=== PATIENT | female | born 1985 | race Caucasian/White ===

== ENCOUNTER 2023-01-31 08:11 | Emergency (ER) | payer MEDICAID ==
[~2023-01-31] VITALS: Ht 172.7 cm; Wt 127.0 kg
[2023-01-31 08:11] VITALS: BP_SYST 163
[~2023-01-31 08:11] MED LIST: AZIT500T2 PO; BENZ-16 PO; FEXO180T16 PO; PHEN120S PO
--- NOTE | 2023-01-31 08:20 | NUR ---
BROUGHT BACK TO BED #3 AND TRIAGED, REPORT GIVEN TO REMBERTO
--- NOTE | 2023-01-31 08:25 | NUR ---
ER at bedside examining patient.
--- NOTE | 2023-01-31 08:32 | NUR ---
Pt states she might have PNA Pt resting comfortably in bed AOX4 VSS Able to make needs known hypertensive at this time MD notified Will continue to monitor
--- NOTE | 2023-01-31 08:42 | NUR ---
COVID AND FLU SWABBED AND SENT TO LAB
[2023-01-31] MEDS ORDERED: PRED20TA PO (10:20)
[2023-01-31] MEDS ORDERED: ALBU2.5V7 INH (10:20)
[2023-01-31 11:06] VITALS: BP_SYST 140
--- NOTE | 2023-01-31 11:08 | NUR ---
Patient given written and verbal discharge instructions and verbalizes understanding. ER MD discussed with patient the results and treatment provided. Patient in stable condition. ID arm band removed. Rx of given. Patient educated on pain management and to follow up with PMD. Pain Scale 0. Opportunity for questions provided and answered. Medication side effect fact sheet provided.
== END 2023-01-31 11:08 | disposition home or self-care (01) ==
LOC: SED 08:11
DX: J98.01 Acute bronchospasm (principal); R05.9 Cough, unspecified; R09.81 Nasal congestion; Z79.899 Other long term (current) drug therapy; Z20.822 Contact with and (suspected) exposure to COVID-19
CPT/HCPCS: 36415; 71045; 99284

== ENCOUNTER 2023-10-31 12:30 | Emergency (ER) | payer MEDICAID ==
[~2023-10-31] VITALS: Ht 172.7 cm; Wt 136.1 kg
[2023-10-31 12:30] VITALS: BP_SYST 158; PULSE 102; RESP 19; TEMP 98.8; O2SAT 97
[~2023-10-31 12:30] MED LIST changes: +ALBU2.5V7 INH; +PRED20TA PO
[2023-10-31] MEDS ORDERED: IPRATROPIUM/ALBUTEROL SULFATE 3 ML AMPUL.NEB (DUONEB) INH ONE (13:15)
[2023-10-31] MEDS ORDERED: predniSONE 20 MG TABLET PO ONE (13:15)
[2023-10-31 13:43] LABS: BASOPHILS # (AUTO) 0.1 K/uL (0.0-0.2); BASOPHILS % (AUTO) 0.7 % (0.0-2.0); EOSINOPHILS # (AUTO) 0.1 K/uL (0.0-0.4); EOSINOPHILS % (AUTO) 1.1 % (0.0-4.0); HEMATOCRIT 42.2 % (36-48); HEMOGLOBIN 14.2 g/dL (12.0-16.0); LYMPHOCYTES % (AUTO) 10.9 % (20.5-51.5); MEAN CORPUSCULAR HEMOGLOBIN 30 pg (27-31); MEAN CORPUSCULAR HGB CONC 34 % (32-36); MEAN CORPUSCULAR VOLUME 88 fL (79.0-98.0); MONOCYTES # (AUTO) 0.8 K/uL (0.0-1.0); MONOCYTES % (AUTO) 8.6 % (1.7-9.3); NEUTROPHILS % (AUTO) 78.7 % (40.0-70.0); PLATELET COUNT (AUTO) 288 K/uL (130-430); RED BLOOD CELL COUNT(AUTO) 4.79 MIL/uL (4.2-6.2); RED CELL DISTRIBUTION WIDTH 12.8 % (9.0-15.0); WHITE BLOOD COUNT (AUTO) 8.9 K/uL (4.8-10.8)
[2023-10-31 13:49] LABS: CALCIUM 8.4 mg/dL (8.4-11.0); CREATININE 0.93 mg/dL (0.55-1.30); POTASSIUM 3.1 mmol/L (3.5-5.1)
[2023-10-31] MEDS ORDERED: ALBU2.5V7 INH (13:55)
[2023-10-31] MEDS ORDERED: CEFU250T85 PO (13:55)
[2023-10-31] MEDS ORDERED: POTASSIUM CHLORIDE 20 MEQ TABLET.ER PO ONE (14:00)
[2023-10-31 14:06] VITALS: BP_SYST 158; PULSE 102; RESP 19; TEMP 98.8
[2023-10-31] MEDS ORDERED: IPRATROPIUM/ALBUTEROL SULFATE 3 ML AMPUL.NEB (DUONEB) ONE (14:11)
[2023-10-31 15:59] VITALS: O2SAT 94
== END 2023-10-31 14:06 | disposition home or self-care (01) ==
LOC: SED 12:30
DX: J45.909 Unspecified asthma, uncomplicated (principal); R05.9 Cough, unspecified; R06.02 Shortness of breath; R07.9 Chest pain, unspecified; Z79.899 Other long term (current) drug therapy
CPT/HCPCS: 36415; 71045; 80048; 85025; 94640; 94760; 99284